=== PATIENT | female | born 1955 | race American Indian/Alaskan Native ===

== ENCOUNTER 2017-08-06 18:46 | Emergency (ER) | payer MEDICARE ==
--- NOTE | 2017-08-07 01:04 | Emergency Department Report ---
ED Laceration HPI - HPI Chief Complaint: Wound/Laceration Stated Complaint: BILATERAL BUTTOCKS PAIN Time Seen by Provider: 08/06/17 23:56 Occurred When: Today Severity: mild Tetanus Status: Up to Date Laceration Symptoms: No Foreign Body Sensation, No Numbness, No Weakness, No Pain Other History: This is a 61 y.o. female presents with drainage to surgical wound. 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 Reports bloody drainage to left buttock surgical wound. Notified surgeon at [facility] and notified to f/u in ER because he is out for vacation. She denies swelling, redness, or pain to wound. ED Review of Systems ROS: Stated complaint: BILATERAL BUTTOCKS PAIN Other details as noted in HPI Constitutional: denies: chills, fever Respiratory: denies: cough, shortness of breath, wheezing Cardiovascular: denies: chest pain, palpitations Gastrointestinal: denies: abdominal pain, nausea, diarrhea Skin: other (bloody drainage to left buttock surgical wound). denies: rash, change in color, change in hair/nails Neurological: denies: headache, weakness, paresthesias ED Past Medical Hx - Past Medical History Hx Hypertension: Yes - Surgical History Past Surgical History?: Yes Additional Surgical History: 08/05/2017 surgery on buttocks - Social History Smoking Status: Never Smoker Substance Use Type: None - Medications Home Medications: Home Medications Medication Instructions Recorded Confirmed Last Taken Type Baclofen [Baclofen] 10 mg PO TID 07/19/15 07/24/15 2 Weeks Ago History ~07/10/15 Fluticasone [Flonase] 2 spray NS QDAY 07/19/15 07/19/15 07/23/15 History Ibuprofen [Motrin 800 MG tab] 800 mg PO PRN PRN 07/19/15 07/24/15 07/17/15 History Methotrexate Sodium [Methotrexate] 6 tab PO QWEEK 07/19/15 07/24/15 07/22/15 History Multivit-Minerals/Folic Acid [[facility] 800 mcg PO DAILY 07/19/15 07/19/15 07/23/15 History Men's Daily Gummies] NIFEdipine [NIFEdipine ER] 30 mg PO DAILY 07/19/15 07/19/15 07/23/15 History Prednisone [Prednisone] 5 mg PO DAILY 07/19/15 07/19/15 07/23/15 History Tramadol HCl [Tramadol HCl] 50 mg PO PRN PRN 07/19/15 07/24/15 1 Month Ago History ~06/24/15 Docusate Sodium [Colace] 100 mg PO BID PRN #60 capsule 07/26/15 Unknown Rx Ibuprofen [Motrin] 800 mg PO Q8HR PRN #60 tablet 07/26/15 Unknown Rx Oxycodone HCl/Acetaminophen 1 each PO Q6HR PRN #45 tablet 07/26/15 Unknown Rx [Percocet 10/325 mg] Laceration Physical Exam - Exam General: Vital signs noted. No distress. Alert and acting appropriately. Wound Length (cm): 7 Laceration Location: Other (left buttock, surgical wound closed with dermabond, bloody discharge at left lateral opening, negative erythema, swelling, and tenderness) Laceration Exam: Yes Normal Distal CMS, No Foreign Body, No Exposed Tendon, Vessel, or Nerve, No Tendon Injury ED Course Vital Signs 08/06/17 19:30 Temperature 98.9 F Pulse Rate 68 Respiratory 18 Rate Blood Pressure 129/72 Blood Pressure 129/72 [Left] O2 Sat by Pulse 97 Oximetry Critical care attestation.: If time is entered above; I have spent that time in minutes in the direct care of this critically ill patient, excluding procedure time. ED Disposition Clinical Impression: Postoperative external wound disruption Qualifiers: Encounter type: initial encounter Qualified Code(s): T81.31XA - Disruption of external operation (surgical) wound, not elsewhere classified, initial encounter Disposition: TO HOME OR SELFCARE Is pt being admited?: No Does the pt Need Aspirin: No Condition: Stable Instructions: Skin Adhesive Care (ED) Additional Instructions: Follow up with Surgeon in 3-5 days. Referrals: PRIMARY CARE, [Primary Care Provider] - 3-5 Days [facility] [Outside] - 3-5 Days [facility] [Outside] - 3-5 Days Time of Disposition: 01:12 Print Language: TRINIDADIAN
[2017-08-07 01:21] VITALS: BP 128/67
== END 2017-08-07 01:17 | disposition home or self-care (01) ==
LOC: ED 18:46
DX: T81.31XA Disruption of external operation (surgical) wound, not elsewhere classified, initial encounter (principal); I10 Essential (primary) hypertension; Z98.890 Other specified postprocedural states
CPT/HCPCS: 99282

== ENCOUNTER 2021-10-26 14:46 | Emergency (ER) | payer MEDICARE ==
[2021-10-26] MEDS ORDERED: IBUPROFEN 600 MG TAB PO ONE (18:13)
[2021-10-26] MEDS ORDERED: HYDROcodone/ACETAMINOPHEN 5-325 MG TAB PO ONE (18:13)
[2021-10-26] MEDS ORDERED: ONDANSETRON 4 MG ODT TAB PO ONE (18:13)
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
[2021-10-26 19:44] VITALS: BP 120/61
== END 2021-10-26 19:46 | disposition home or self-care (01) ==
LOC: ED 14:46
DX: S43.402A Unspecified sprain of left shoulder joint, initial encounter (principal); M62.830 Muscle spasm of back; I10 Essential (primary) hypertension; Z98.890 Other specified postprocedural states; Z87.891 Personal history of nicotine dependence; V89.2XXA Person injured in unspecified motor-vehicle accident, traffic, initial encounter; Y93.89 Activity, other specified; Y92.89 Other specified places as the place of occurrence of the external cause; Y99.8 Other external cause status
CPT/HCPCS: 72100; 99283; J3490; Q0162